=== PATIENT | male | born 1995 | race Caucasian/White ===

== ENCOUNTER 2022-09-25 09:38 | Emergency (ER) | payer SELFPAY ==
[~2022-09-25] VITALS: Ht 167.6 cm; Wt 68.0 kg
[2022-09-25 09:49] VITALS: O2SAT 100
[2022-09-25] MEDS ORDERED: ONDANSETRON HCL 4MG/2ML INJ IV STA (09:49)
[2022-09-25] MEDS ORDERED: KETOROLAC 15MG/ML VIAL IV ONE (10:15)
[2022-09-25 10:21] LABS: BASOPHILS % 1.5 % (0.0-2.0); EOSINOPHILS % 0.3 % (0.0-5.0); HEMATOCRIT. 42.5 % (42.0-52.0); HEMOGLOBIN. 14.5 g/dL (14.0-18.0); LYMPHOCYTES % 27.6 % (20.0-50.0); MEAN CORPUSCULAR HEMOGLOBIN 29.9 pg (28.0-32.0); MEAN CORPUSCULAR VOLUME 87.7 fL (80.0-94.0); MEAN PLATELET VOLUME 7.3 fl (7.4-10.4); MONOCYTES % 4.6 % (2.0-8.0); PLATELET 318 x1000/uL (130-400); RED BLOOD CELL COUNT 4.85 mill/uL (4.7-6.1); RED CELL DISTRIBUTION WIDTH 14.1 % (11.6-14.6)
[2022-09-25 10:27] LABS: CHLORIDE 106 mEq/L (98-107)
[2022-09-25 10:33] LABS: D-DIMER < 0.19 mg/L FEU (<0.50); PROTHROMBIN TIME 10.6 sec (9.6-11.0)
[2022-09-25] MEDS ORDERED: TOPUD PO (11:32)
[2022-09-25 11:57] VITALS: BP 123/48; PULSE 81; RESP 16; TEMP 97.2
== END 2022-09-25 11:58 | disposition home or self-care (01) ==
LOC: ER 09:38
DX: R07.89 Other chest pain (principal); I10 Essential (primary) hypertension
CPT/HCPCS: 80053; 83880; 85025; 85379; 85610; 84484; 36415; 71045; 93005; 96374; 96375; 99285; J1885; J2405; Z7610 ×4